=== PATIENT | male | born 1940 | race Caucasian/White ===

== ENCOUNTER → 2016-09-29 | Outpatient (CLI) | payer OTHER ==
[2016-02-20 11:09] VITALS: BP 135/78
[~2016-09-29] MED LIST: ACET500T68 PO; AMLO5TAB2 PO; ASPI-482 PO; ATEN25TA PO; ATOR40TA59 PO; CLOP75TA PO; DOCU-109 PO; FERR-26 PO; FINA5TAB PO; HYDR-2762 PO; LISI10TA2 PO; METH750T2 PO; NAPR220T70 PO; NAPR500T PO; OXYC-323 PO; SIMV40TA3 PO; TAMS0.4C97 PO; WARF-78 PO
== END | disposition home or self-care (01) ==
LOC: SURGPAT 14:11
PROVIDERS: ATTEND Orthopaedic Surgery
DX: M16.12 Unilateral primary osteoarthritis, left hip (principal); Z96.642 Presence of left artificial hip joint
CPT/HCPCS: 87641

== ENCOUNTER 2017-02-22 16:03 | Inpatient (IN) | payer OTHER ==
[2017-02-22] MEDS: fentaNYL PF VIAL 100 MCG/2 ML VIAL IV ×4 (17:01→21:06)
[2017-02-22] MEDS: ONDANSETRON PF 4 MG/2 ML VIAL. IV (17:01)
[2017-02-22] MEDS: IV NORMAL SALINE 500ML BAG 500 ML IV (17:08)
[2017-02-22 17:13] LABS: BASO % 0 % (0-3); EOS % 0 % (0-3); HEMATOCRIT 38.1 % (39.0-53.0); HEMOGLOBIN 12.2 g/dL (13.0-17.5); LYMPH # 0.7 x10^3/uL (1.0-4.8); LYMPH % 6 % (24-48); MEAN CORPUSCULAR HEMOGLOBIN 28 pg (25-35); MEAN CORPUSCULAR HGB CONC 32 g/dL (31-37); MEAN CORPUSCULAR VOLUME 88 fL (79-100); MONO # 0.3 x10^3/uL (0.0-1.1); MONO % 3 % (0-9); NEUT # 10.7 x10^3uL (1.8-7.7); NEUT % 91 % (31-73); PLATELET COUNT 232 x10^3/uL (140-400); RED BLOOD COUNT 4.35 x10^6/uL (4.30-5.70); RED CELL DISTRIBUTION WIDTH 17.8 % (11.5-14.5); WHITE BLOOD COUNT 11.7 x10^3/uL (4.0-11.0)
[2017-02-22 17:16] LABS: ADD MAN DIFF? YES
[2017-02-22 17:24] LABS: ANION GAP 11 (6-14); BLOOD UREA NITROGEN 28 mg/dL (8-26); BUN/CREATININE RATIO 16 (6-20); CALCIUM 9.3 mg/dL (8.5-10.1); CARBON DIOXIDE 26 mmol/L (21-32); CHLORIDE 106 mmol/L (98-107); CREATININE 1.7 mg/dL (0.7-1.3); GFR 39.4; GLUCOSE 187 mg/dL (70-99); POTASSIUM 4.5 mmol/L (3.5-5.1); SODIUM 143 mmol/L (136-145)
[2017-02-22 17:29] LABS: ALBUMIN 3.6 g/dL (3.4-5.0); ALK PHOS 134 U/L (46-116); ALT (SGPT) 39 U/L (16-63); AST (SGOT) 32 U/L (15-37); LIPASE 239 U/L (73-393); TOTAL BILIRUBIN 0.4 mg/dL (0.2-1.0); TOTAL PROTEIN 7.3 g/dL (6.4-8.2)
[2017-02-22 17:32] LABS: % BANDS 15 % (0-9); % LYMPHS 5 % (24-48); % MONOS 1 % (0-10); % SEGS 79 % (35-66)
[2017-02-22 17:32] LABS: TROPONINI < 0.017 ng/mL (0.000-0.055)
[2017-02-22 17:33] LABS: ANISOCYTOSIS SLIGHT; PLT ESTIMATE ADEQUATE (ADEQUATE); TOXIC GRANULATION SLIGHT
[2017-02-22 17:53] LABS: BILIRUBIN,URINE NEGATIVE (NEG); CLARITY,URINE CLEAR; COLOR,URINE YELLOW; GLUCOSE,URINE 250 mg/dL (NEG); NITRITE,URINE NEGATIVE (NEG); PROTEIN,URINE 30 mg/dL (NEG-TRACE); UROBILINOGEN,URINE 0.2 mg/dL (0.2 mg/dL)
[2017-02-22 17:59] LABS: BACTERIA,URINE 0 /HPF (0-FEW); RBC,URINE RARE /HPF (0-2); WBC,URINE 0 /HPF (0-4)
[2017-02-22] MEDS ORDERED: PIPERACILLIN/TAZOBACTAM 4.5 GM in IV NORMAL SALINE 100ML 100 ML IV (20:00)
[2017-02-22] MEDS ORDERED: ONDANSETRON PF 4 MG/2 ML VIAL. IV (20:15)
[2017-02-22] MEDS: PIPERACILLIN/TAZO IV Push 4.5 GM VIAL. IVP (20:27)
[2017-02-22] MEDS: IV NORMAL SALINE 1000ML BAG 1,000 ML IV (21:04)
[2017-02-23] MEDS: MORPHINE SULFATE 4 MG/ML DISP.SYRIN. IV ×3 (03:06→14:50)
[2017-02-23] MEDS: IV NORMAL SALINE 1000ML BAG 1,000 ML IV (04:37)
[2017-02-23 05:18] LABS: ADD MAN DIFF? NO
[2017-02-23 05:22] LABS: BASO % 0 % (0-3); EOS % 0 % (0-3); HEMATOCRIT 32.7 % (39.0-53.0); HEMOGLOBIN 10.6 g/dL (13.0-17.5); LYMPH # 1.6 x10^3/uL (1.0-4.8); LYMPH % 17 % (24-48); MEAN CORPUSCULAR HEMOGLOBIN 29 pg (25-35); MEAN CORPUSCULAR HGB CONC 33 g/dL (31-37); MEAN CORPUSCULAR VOLUME 88 fL (79-100); MONO # 0.9 x10^3/uL (0.0-1.1); MONO % 9 % (0-9); NEUT # 6.7 x10^3uL (1.8-7.7); NEUT % 73 % (31-73); PLATELET COUNT 204 x10^3/uL (140-400); RED BLOOD COUNT 3.73 x10^6/uL (4.30-5.70); RED CELL DISTRIBUTION WIDTH 17.9 % (11.5-14.5); WHITE BLOOD COUNT 9.1 x10^3/uL (4.0-11.0)
[2017-02-23 05:57] LABS: ANION GAP 9 (6-14); BLOOD UREA NITROGEN 26 mg/dL (8-26); CALCIUM 8.7 mg/dL (8.5-10.1); CARBON DIOXIDE 26 mmol/L (21-32); CHLORIDE 110 mmol/L (98-107); CREATININE 1.7 mg/dL (0.7-1.3); GFR 39.4; GLUCOSE 104 mg/dL (70-99); POTASSIUM 4.6 mmol/L (3.5-5.1); SODIUM 145 mmol/L (136-145)
[2017-02-23] MEDS ORDERED: PANTOPRAZOLE 40 MG TABLET.DR. PO (09:00)
[2017-02-23] MEDS: LISINOPRIL 10 MG TABLET PO (09:00)
[2017-02-23] MEDS: hydroCHLOROthiazide 12.5 MG CAPSULE PO (09:57)
[2017-02-23] MEDS: PANTOPRAZOLE 40 MG TABLET.DR. PO (09:57)
[2017-02-23] MEDS: METOPROLOL TART IMMED RELEASE 25 MG TABLET. PO (09:58)
[2017-02-23 11:49] LABS: ADD MAN DIFF? NO
[2017-02-23 11:52] LABS: BASO % 0 % (0-3); EOS # 0.1 x10^3/uL (0.0-0.7); EOS % 1 % (0-3); HEMATOCRIT 33.5 % (39.0-53.0); HEMOGLOBIN 10.8 g/dL (13.0-17.5); LYMPH # 1.5 x10^3/uL (1.0-4.8); LYMPH % 17 % (24-48); MEAN CORPUSCULAR HEMOGLOBIN 28 pg (25-35); MEAN CORPUSCULAR HGB CONC 32 g/dL (31-37); MEAN CORPUSCULAR VOLUME 88 fL (79-100); MONO # 0.8 x10^3/uL (0.0-1.1); MONO % 9 % (0-9); NEUT # 6.6 x10^3uL (1.8-7.7); NEUT % 74 % (31-73); PLATELET COUNT 213 x10^3/uL (140-400); RED CELL DISTRIBUTION WIDTH 17.8 % (11.5-14.5)
[2017-02-23] MEDS ORDERED: FINASTERIDE 5 MG TABLET. PO (21:00)
[2017-02-23] MEDS ORDERED: TAMSULOSIN 0.4 MG CAP.ER.24H. PO (21:00)
[2017-02-23] MEDS ORDERED: ATORVASTATIN CALCIUM 40 MG TABLET. PO (21:00)
== END 2017-02-23 16:30 | disposition home or self-care (01) | DRG 556 ==
LOC: ER 16:03 → 5 SOUTH 19:10
DX: M79.81 Nontraumatic hematoma of soft tissue (principal); E11.22 Type 2 diabetes mellitus with diabetic chronic kidney disease; I13.0 Hypertensive heart and chronic kidney disease with heart failure and stage 1 through stage 4 chronic kidney disease, or unspecified chronic kidney disease; I50.9 Heart failure, unspecified; E78.00 Pure hypercholesterolemia, unspecified; E78.5 Hyperlipidemia, unspecified; I25.10 Atherosclerotic heart disease of native coronary artery without angina pectoris; N18.9 Chronic kidney disease, unspecified; Z82.49 Family history of ischemic heart disease and other diseases of the circulatory system; Z86.73 Personal history of transient ischemic attack (TIA), and cerebral infarction without residual deficits; Z95.1 Presence of aortocoronary bypass graft; Z96.649 Presence of unspecified artificial hip joint; M19.90 Unspecified osteoarthritis, unspecified site; M54.5 Low back pain
CPT/HCPCS: 36415; 73502; 74176; 80048; 80053; 81001; 83690; 84484; 85007; 85025; 93005; 96361; 96365; 96374; 99285; 99285-25; J2270; J2405; J2543; J3010; J7030; J7040

== ENCOUNTER 2021-03-25 10:01 | Outpatient (CLI) | payer MEDICARE ==
[~2021-03-25] VITALS: Ht 177.8 cm; Wt 80.0 kg
[~2021-03-25 10:01] MED LIST changes: +AMLO-186 PO; -AMLO5TAB2 PO; +APIX5TAB PO; +ATEN50TA PO; +ATOR80TA72 PO; +CYAN500T7 PO; +DILT120C99 PO; -FERR-26 PO; +FERR325T14 PO; +FINA5TAB4 PO; -HYDR-2762 PO; +HYDR-2765 PO; +HYDR12.575 PO; +HYDR12.58 PO; +Iron PO; +LISI10TA16 PO; -LISI10TA2 PO; +METH-562 PO; -METH750T2 PO; +METO50TA6 PO; +METR500T PO; +NAPR-683 PO; -NAPR500T PO; +NITR0.4T22 SL; +OMEP40CA7 PO; +OXYC-314 PO; -OXYC-323 PO; +OXYC1TAB15 PO; +PANT40TA77 PO; +POLY17PO52 PO; +SIMV40TA18 PO; -SIMV40TA3 PO; +VIT1TABL71 PO; -WARF-78 PO; +WARF5TAB2 PO; +oxycodone
[2021-03-25] MEDS ORDERED: LIDOCAINE 1%/EPI 1:100,000 20 ML VIAL. ONE (10:02)
[2021-03-25] MEDS ORDERED: METO-239 PO (10:20)
[2021-03-25] MEDS ORDERED: FERR159T3 PO (10:20)
[2021-03-25] MEDS ORDERED: FOLI0.8T21 PO (10:20)
[2021-03-25 10:26] LABS: BASO % 0 % (0-3); EOS # 0.1 x10^3/uL (0.0-0.7); EOS % 1 % (0-3); HEMATOCRIT 35.3 % (39.0-53.0); HEMOGLOBIN 11.5 g/dL (13.0-17.5); LYMPH # 1.1 x10^3/uL (1.0-4.8); LYMPH % 16 % (24-48); MEAN CORPUSCULAR HEMOGLOBIN 31 pg (25-35); MEAN CORPUSCULAR HGB CONC 32 g/dL (31-37); MEAN CORPUSCULAR VOLUME 95 fL (79-100); MONO # 0.5 x10^3/uL (0.0-1.1); MONO % 8 % (0-9); NEUT # 4.8 x10^3/uL (1.8-7.7); NEUT % 74 % (31-73); PLATELET COUNT 212 x10^3/uL (140-400); RED BLOOD COUNT 3.71 x10^6/uL (4.30-5.70); RED CELL DISTRIBUTION WIDTH 16.2 % (11.5-14.5); WHITE BLOOD COUNT 6.5 x10^3/uL (4.0-11.0)
[2021-03-25 10:34] VITALS: BP 118/72
[2021-03-25] MEDS ORDERED: MIDAZOLAM HCL/PF 2 MG/2 ML VIAL. ONE (11:10)
[2021-03-25] MEDS ORDERED: fentaNYL PF VIAL 100 MCG/2 ML VIAL ONE (11:10)
[2021-03-25] MEDS ORDERED: MIDAZOLAM HCL/PF 2 MG/2 ML VIAL. IV ONE (11:30)
[2021-03-25] MEDS ORDERED: LIDOCAINE 1%/EPI 1:100,000 20 ML VIAL. SQ ONE (11:30)
[2021-03-25] MEDS ORDERED: fentaNYL PF VIAL 100 MCG/2 ML VIAL IV ONE (11:30)
[2021-03-25 11:31] VITALS: BP 106/55
[2021-03-25 11:40] VITALS: BP 122/63
[2021-03-25 11:55] VITALS: BP 117/47
--- NOTE | 2021-03-25 11:56 | RAD ---
Procedure: Tunneled hemodialysis catheter placement Clinical Indication: Renal failure. Prior catheter inadvertently removed. Sedation: Conscious sedation was administered for 19 minutes. The patient was monitored by a [facility] ed independent observer throughout the time of sedation. Please refer to the medical record for exac t doses of medications utilized to achieve moderate sedation. Fluoro Time: 0.3 minutes Dose area product 1 Bass centimeter squared Sterility: All elements of maximal sterile barrier technique including the use of a cap, mask, steril e gown, sterile gloves, large sterile sheet, appropriate hand hygiene, and 2% chlorhexidine for cutan eous antisepsis (or acceptable alternative antiseptic per current guidelines) were followed for this procedure. Consent: The procedure was explained in its entirety to the patient or the patients designated repres entative by a member of the treatment team, including a discussion of the risks, benefits and commonl y accepted alternatives to the procedure, as well as the expected consequences of no therapy whatsoev er. Discussion of the risks included, but was not limited to, those that are most frequent and thos e that are rare but possibly severe or life-threatening, as well as the possibility of unforeseen com plications. Technique and Findings: Following informed consent, the patient was prepped and draped in the usual s terile fashion. Ultrasound interrogation of the right neck revealed patency and compressibility of t he right internal jugular vein. A 21-gauge micropuncture was then used to gain access to this vein u nder ultrasound guidance. A hard copy ultrasound image was recorded. The needle was exchanged over a wire for a 4 Croatian sheath which was used to guide an Amplatz wire into the IVC. The skin over the right anterior chest wall was copiously anesthetized with 1% Lidocaine plus Epinephrine and a small dermatotomy was made. 23 cm tip to cuff palindrome hemodialysis catheter was then tunneled subcutaneo usly towards the neck dermatotomy and deployed through a large caliber peel-away sheath under fluoros copic guidance such that the distal tip resided in the mid right atrium. The catheter was found to fl ush and aspirate normally. The catheter was secured and sterile dressings were applied. Impression: Placement of a right internal jugular tunneled hemodialysis catheter with ultrasound and fluoroscopic guidance as described. Electronically signed by: Sami Solano MD (03/25/2021 11:54 AM) [id number]
[2021-03-25 12:10] VITALS: BP 118/83
[2021-03-25 12:26] VITALS: BP 105/68
--- NOTE | 2021-03-25 12:33 | NUR ---
STEPHANIE dc'd. Discharge instructions reviewed with patient. Pt ambulated and tolerated PO.
--- NOTE | 2021-03-25 12:59 | NUR ---
patient discharged to home with friend
== END 2021-03-25 13:01 | disposition home or self-care (01) ==
LOC: INTRAD 10:01
PROVIDERS: ATTEND Internal Medicine Nephrology
DX: Z45.2 Encounter for adjustment and management of vascular access device (principal); I25.10 Atherosclerotic heart disease of native coronary artery without angina pectoris; I13.2 Hypertensive heart and chronic kidney disease with heart failure and with stage 5 chronic kidney disease, or end stage renal disease; I50.9 Heart failure, unspecified; I48.91 Unspecified atrial fibrillation; N18.6 End stage renal disease; E78.00 Pure hypercholesterolemia, unspecified; K21.9 Gastro-esophageal reflux disease without esophagitis; M19.90 Unspecified osteoarthritis, unspecified site; N40.0 Benign prostatic hyperplasia without lower urinary tract symptoms; Z79.899 Other long term (current) drug therapy; Z98.890 Other specified postprocedural states; Z88.8 Allergy status to other drugs, medicaments and biological substances
CPT/HCPCS: 36415; 36558; 76937; 77001; 85025; 85610; 99152; C1750; C1769; C1892; J0690; J2250; J3010; J3490

== ENCOUNTER 2021-04-22 08:28 | Outpatient (CLI) | payer MEDICARE ==
[~2021-04-22] VITALS: Ht 177.8 cm; Wt 82.3 kg
[~2021-04-22 08:28] MED LIST changes: +FERR159T3 PO; +FOLI0.8T21 PO; +METO-239 PO
[2021-04-22 09:03] VITALS: BP 140/77
[2021-04-22] MEDS ORDERED: LIDOCAINE 1%/EPI 1:100,000 20 ML VIAL. SQ ONE (10:15)
[2021-04-22 10:35] VITALS: BP 126/72
[2021-04-22 10:50] VITALS: BP 126/72
--- NOTE | 2021-04-22 11:21 | NUR ---
Discharge Note: CHARLEY SÁNCHEZ Discharge instructions and discharge home medications reviewed with Patient and a copy given. All questions have been answered and understanding verbalized. The following instructions and handouts were given: DIALYSIS CATH INSERTION AND REMOVAL, INCISION SITE CARE. Patient discharged to HOME, ACCOMPANIED BY HIS FRIEND. VSS. NO COMPLAINTS, BJORN C/D/I.
--- NOTE | 2021-04-22 15:59 | RAD ---
Procedure: Fluoroscopic guided removal of tunneled hemodialysis catheter Clinical Indication: Adult male no longer requiring hemodialysis Sedation: Local anesthesia only Antibiotics: None Fluoro Exposure: Kerma-Area Product: mGycm2 Fluoro Time: 0.2 minutes # of Images: 1 Sterility: The procedure was performed in its entirety using appropriate elements of sterile techniqu e. Consent: The procedure was explained in its entirety to the patient or the patients designated repres entative by a member of the treatment team, including a discussion of the risks, benefits and commonl y accepted alternatives to the procedure, as well as the expected consequences of not performing the procedure. Discussion of the risks included, but was not limited to, those that are most frequent an d those that are rare but possibly severe or life-threatening, as well as the possibility of unforese en complications. Time Out: Immediately prior to initiation a procedural pause was conducted in the presence of the mem bers of the treatment team to verify correct patient identity, correct procedure, correct side if delaney licable, correct patient position, availability of specialized equipment, review of patients allergie s, and assessment of current level of consciousness and arousability. Technique and Findings: Following informed consent, the patient was prepped and draped in usual steri le fashion. Preliminary fluoroscopic spot view revealed an intact tunneled hemodialysis catheter. 1 p ercent lidocaine was used to achieve local anesthesia around the exit site, and blunt dissection tech niques were used to free the cuff. The catheter was then removed and one piece and hemostasis was ach ieved with manual compression. The pocket was irrigated with sterile saline then closed with a single deep interrupted 4-0 Vicryl suture. Complications: No immediate Impression: 1. Fluoroscopic guided removal of a right IJ tunneled femoral dialysis catheter as described Electronically signed by: Jacob Vasquez MD (04/22/2021 3:56 PM) [id number]
== END 2021-04-22 11:15 | disposition home or self-care (01) ==
LOC: INTRAD 08:28
PROVIDERS: ATTEND Nurse Practitioner Adult Health
DX: Z45.2 Encounter for adjustment and management of vascular access device (principal); I11.0 Hypertensive heart disease with heart failure; I50.9 Heart failure, unspecified; I25.10 Atherosclerotic heart disease of native coronary artery without angina pectoris; E78.00 Pure hypercholesterolemia, unspecified; K21.9 Gastro-esophageal reflux disease without esophagitis; N40.0 Benign prostatic hyperplasia without lower urinary tract symptoms; M19.90 Unspecified osteoarthritis, unspecified site; I48.91 Unspecified atrial fibrillation; Z79.899 Other long term (current) drug therapy; Z98.890 Other specified postprocedural states; Z88.8 Allergy status to other drugs, medicaments and biological substances; Z72.89 Other problems related to lifestyle
CPT/HCPCS: 36589; 77001; J3490